=== PATIENT | female | born 1950 | race Caucasian/White ===

== ENCOUNTER 2018-02-04 14:00 | Emergency (ER) | payer MEDICARE ==
[~2018-02-04] VITALS: Ht 157.5 cm; Wt 40.0 kg
[2018-02-04 14:58] LABS: HEMATOCRIT 43.3 % (37.0-47.0); HEMOGLOBIN 13.3 g/dl (12.0-16.0); IMMATURE GRANULOCYTES 0.7 % (0.0-1.0); MEAN CORPUSCULAR HGB 29.5 pG CALC (26.0-32.0); MEAN CORPUSCULAR HGB CONC 30.7 g/L CALC (32.0-36.0); NEUT# 16.38 thou/uL (2.00-7.15); RED BLOOD COUNT 4.51 mill/uL (4.20-5.60); RED CELL DISTRI WIDTH 13.5 % (11.5-15.5)
[2018-02-04 15:09] LABS: ALBUMIN 4.1 g/dL (3.2-5.0); ALKALINE PHOSPHATASE 213 u/l (38-126); ANION GAP 16 (6-22 (CALC)); BILIRUBIN, TOTAL 0.4 mg/dL (0.0-1.4); BUN 28 mg/dL (8-23); BUN/CREATININE RATIO 27 (12-20 (CALC)); CARBON DIOXIDE 25 mmol/l (22-30); CHLORIDE 107 mmol/l (95-108); GFR 55 ML/MIN (>=60 (CALC)); GFR FOR AFR.AMER. > 60 ML/MIN (>=60 (CALC)); SGOT/AST 81 u/l (9-36); SGPT/ALT 53 u/l (11-66); SODIUM 143 mmol/l (137-146); TOTAL PROTEIN 7.5 g/dL (6.3-8.2)
[2018-02-04 15:12] LABS: POTASSIUM 5.2 mmol/l (3.5-5.1)
[2018-02-04] MEDS ORDERED: DILTIAZEM30 MG PO (15:20)
[2018-02-04] MEDS ORDERED: OMEPRAZOLE20 MG PO (15:20)
[2018-02-04] MEDS ORDERED: FOLIC ACID1 MG PO (15:22)
[2018-02-04] MEDS ORDERED: MIRALAX3350 NF PO (15:22)
[2018-02-04] MEDS ORDERED: NICODERM C14 MG/241 (15:23)
[2018-02-04] MEDS ORDERED: DOCUSATE CAL240 MG PO (15:24)
[2018-02-04] MEDS ORDERED: IRON325 M1 (15:24)
[2018-02-04] MEDS ORDERED: SYMBICORT1 AE1 IN (15:25)
[2018-02-04] MEDS ORDERED: SENNA-TABS8.6 MG PO (15:25)
[2018-02-04] MEDS ORDERED: IPRATROPIU0.5 MG/3 M IN (15:27)
[2018-02-04] MEDS ORDERED: LEVALBUTER0.63 MG/3 (15:28)
[2018-02-04] MEDS ORDERED: MELADOX3 MG PO (15:29)
[2018-02-04] MEDS ORDERED: ZOCOR5 MG PO (15:29)
[2018-02-04] MEDS ORDERED: GUAIFENESIN (15:29)
[2018-02-04] MEDS ORDERED: OLANZAPINE5 MG PO (15:30)
[2018-02-04 16:57] VITALS: BP 112/57
== END 2018-02-04 16:57 | disposition short-term general hospital (02) ==
LOC: ED 14:00
PROVIDERS: Emergency Medicine
PROC: 5A09357 Assistance with Respiratory Ventilation, Less than 24 Consecutive Hours, Continuous Positive Airway Pressure (ICD-10-PCS; principal; 2018-02-04)
DX: I21.4 Non-ST elevation (NSTEMI) myocardial infarction (principal); I50.9 Heart failure, unspecified; J96.92 Respiratory failure, unspecified with hypercapnia; J44.9 Chronic obstructive pulmonary disease, unspecified; Z93.3 Colostomy status; Z99.81 Dependence on supplemental oxygen; K57.90 Diverticulosis of intestine, part unspecified, without perforation or abscess without bleeding
CPT/HCPCS: J1650; J3475

== ENCOUNTER 2018-04-18 14:19 | Emergency (ER) | payer MEDICARE ==
[~2018-04-18] VITALS: Ht 157.5 cm; Wt 65.0 kg
[~2018-04-18 14:19] MED LIST: DILTIAZEM30 MG PO; DOCUSATE CAL240 MG PO; FOLIC ACID1 MG PO; GUAIFENESIN; IPRATROPIU0.5 MG/3 M IN; IRON325 M1; LEVALBUTER0.63 MG/3; MELADOX3 MG PO; MIRALAX3350 NF PO; NICODERM C14 MG/241; OLANZAPINE5 MG PO; OMEPRAZOLE20 MG PO; SENNA-TABS8.6 MG PO; SYMBICORT1 AE1 IN; ZOCOR5 MG PO
[2018-04-18 15:02] LABS: HEMATOCRIT 44.8 % (37.0-47.0); HEMOGLOBIN 13.9 g/dl (12.0-16.0); IMMATURE GRANULOCYTES 0.6 % (0.0-5.0); MEAN CELL VOLUME 97.4 fL CALC (80.0-100.0); MEAN CORPUSCULAR HGB 30.2 pG CALC (26.0-32.0); NEUT# 7.64 thou/uL (2.00-7.15); RED BLOOD COUNT 4.6 mill/uL (4.20-5.60); RED CELL DISTRI WIDTH 14.9 % (11.5-15.5)
[2018-04-18 15:07] LABS: ALBUMIN 3.9 g/dL (3.2-5.0); ALKALINE PHOSPHATASE 148 u/l (38-126); ANION GAP 13 (6-22 (CALC)); BILIRUBIN, TOTAL 0.2 mg/dL (0.0-1.4); BUN 23 mg/dL (8-23); BUN/CREATININE RATIO 42 (12-20 (CALC)); CARBON DIOXIDE 31 mmol/l (22-30); CHLORIDE 105 mmol/l (95-108); CREATININE 0.6 mg/dL (0.5-1.0); GFR > 60 ML/MIN (>=60 (CALC)); GFR FOR AFR.AMER. > 60 ML/MIN (>=60 (CALC)); POTASSIUM 4.5 mmol/l (3.5-5.1); SGOT/AST 32 u/l (9-36); SGPT/ALT 38 u/l (11-66); SODIUM 144 mmol/l (137-146); TOTAL PROTEIN 6.9 g/dL (6.3-8.2)
[2018-04-18 15:19] LABS: MYOGLOBIN 22 ng/mL (0 - 62)
[2018-04-18] MEDS ORDERED: ATORVASTATIN CA80 MG PO (15:24)
[2018-04-18] MEDS ORDERED: ASPIRIN81 MG PO (15:25)
[2018-04-18] MEDS ORDERED: ELIQUIS5 MG PO (15:27)
[2018-04-18] MEDS ORDERED: BUSPIRONE5 MG PO (15:42)
[2018-04-18] MEDS ORDERED: METO50TA52 PO (15:45)
[2018-04-18] MEDS ORDERED: PANTOPRAZOLE SO40 MG PO (15:49)
[2018-04-18] MEDS ORDERED: PAROXETINE10 MG PO (15:50)
[2018-04-18] MEDS ORDERED: OLANZAPINE5 MG PO (15:50)
[2018-04-18] MEDS ORDERED: XOPENEX HFA IN (15:52)
[2018-04-18] MEDS ORDERED: PERFOROMIS20 MCG/2 M PO (15:54)
[2018-04-18] MEDS ORDERED: LOSARTAN POTASS25 MG PO (15:55)
[2018-04-18] MEDS ORDERED: TRAMADOL HCL50 MG PO (15:56)
[2018-04-18 16:48] VITALS: BP 134/65
== END 2018-04-18 16:47 | disposition home or self-care (01) ==
LOC: ED 14:19
PROVIDERS: Emergency Medicine
DX: J44.1 Chronic obstructive pulmonary disease with (acute) exacerbation (principal); R06.02 Shortness of breath; R94.31 Abnormal electrocardiogram [ECG] [EKG]
CPT/HCPCS: J3475

== ENCOUNTER 2018-04-29 20:52 | Emergency (ER) | payer MEDICARE, OTHER ==
[~2018-04-29] VITALS: Ht 157.5 cm; Wt 44.5 kg
[~2018-04-29 20:52] MED LIST changes: +ASPIRIN81 MG PO; +ATORVASTATIN CA80 MG PO; +BUSPIRONE5 MG PO; +ELIQUIS5 MG PO; +LOSARTAN POTASS25 MG PO; +METO50TA52 PO; +PANTOPRAZOLE SO40 MG PO; +PAROXETINE10 MG PO; +PERFOROMIS20 MCG/2 M PO; +TRAMADOL HCL50 MG PO; +XOPENEX HFA IN
[2018-04-29 21:40] LABS: HEMATOCRIT 44.3 % (37.0-47.0); HEMOGLOBIN 13.8 g/dl (12.0-16.0); IMMATURE GRANULOCYTES 0.6 % (0.0-5.0); MEAN CELL VOLUME 96.5 fL CALC (80.0-100.0); MEAN CORPUSCULAR HGB 30.1 pG CALC (26.0-32.0); MEAN CORPUSCULAR HGB CONC 31.2 g/L CALC (32.0-36.0); NEUT# 12.77 thou/uL (2.00-7.15); RED BLOOD COUNT 4.59 mill/uL (4.20-5.60); RED CELL DISTRI WIDTH 14.2 % (11.5-15.5)
[2018-04-29 21:52] LABS: ALBUMIN 3.7 g/dL (3.2-5.0); ALKALINE PHOSPHATASE 144 u/l (38-126); ANION GAP 9 (6-22 (CALC)); BILIRUBIN, TOTAL 0.4 mg/dL (0.0-1.4); BUN 47 mg/dL (8-23); BUN/CREATININE RATIO 72 (12-20 (CALC)); CARBON DIOXIDE 38 mmol/l (22-30); CHLORIDE 99 mmol/l (95-108); CREATININE 0.6 mg/dL (0.5-1.0); GFR > 60 ML/MIN (>=60 (CALC)); GFR FOR AFR.AMER. > 60 ML/MIN (>=60 (CALC)); POTASSIUM 4.9 mmol/l (3.5-5.1); SGOT/AST 30 u/l (9-36); SODIUM 141 mmol/l (137-146); TOTAL PROTEIN 6.8 g/dL (6.3-8.2)
[2018-04-29 21:59] LABS: ACT PARTIAL THROMBO TIME 23.1 SECONDS (20.0-32.5); PROTHROMBIN TIME 10.2 SECONDS (9.0-12.5)
[2018-04-30] MEDS ORDERED: Levaquin PO (00:31)
[2018-04-30 02:55] VITALS: BP 113/71
== END 2018-04-30 02:55 | disposition home or self-care (01) ==
LOC: ED 20:52
PROVIDERS: Emergency Medicine
DX: J44.9 Chronic obstructive pulmonary disease, unspecified (principal); R06.02 Shortness of breath; R05 Cough; Z86.711 Personal history of pulmonary embolism; Z79.82 Long term (current) use of aspirin

== ENCOUNTER 2018-04-30 14:45 | Observation (INO) | payer MEDICARE, OTHER ==
[~2018-04-30] VITALS: Ht 157.5 cm; Wt 41.0 kg
[~2018-04-30 14:45] MED LIST changes: +Levaquin PO
--- NOTE | 2018-04-30 14:46 | NUR ---
PT TO ROOM 13 VIA EMS. O2 DEPENDENT 3L/M VIA NC.
--- NOTE | 2018-04-30 15:01 | NUR ---
PT STATES SHE HAD BEEN TRANSFERRED OVER TO [facility] FROM OUR ER LAST WEEK WAS THERE FOR 5 DAYS, DISCHARGED YESTERDAY AND WITHIN 30 MIN DIDNT THINK SHE WAS BREATHING RIGHT AND CAME TO OUR ER. WE DISCHARGED HER ON SHOP MANAGER LAST NIGHT, PT STATES WAS BEING SEEN BY A HOME HEALTH NURSE FOR FOLLOW UP AND STATES SHE FEELS THAT SHE NEEDS TO GO TO REHAB FOR HER BREATHING. PT IS ON 02 AT 3 L P/NC AT HOME. UPON ARRIVAL BY EMS PTS SATS ARE 98% ON 3 LITRES. PT IS ALERT/ORIENTED TO SELF/PLACE. EMS STATES THAT DAUGHTER STATED SHE WAS IN END STAGE COPD, BUT PT STATES SHE HAS NEVER HEARD THAT FROM DOCTORS.
--- NOTE | 2018-04-30 15:13 | NUR ---
PT INFORMED THAT SHE JUST DOESNT FEEL LIKE SHE CAN BREATHE RIGHT OR CATCH HER BREATH.
--- NOTE | 2018-04-30 15:28 | NUR ---
DR. COSTA IS SPEAKING TO CASE MANAGEMENT ABOUT POSSIBLE PLACEMENT.
--- NOTE | 2018-04-30 15:42 | NUR ---
PT IS TO BE ADMITTED TODAY AND CASE MANAGEMENT WILL SPEAK WITH PT TOMORROW. PT AND FAMILY VOICES UNDERSTANDING. PT RESTING QUIETLY ON STRETCHER, CALL LIGHT WITHIN REACH, SIDE RAILS UP, SISTER AT BEDSIDE.
--- NOTE | 2018-04-30 15:52 | NUR ---
SPOKE TO PT ABOUT SWELLING AND BRUISING TO LEFT AC AREA, PT AND FAMILY STATES IT WAS FROM LAST NIGHT WHERE SHE HAD CONTRAST FOR CT, AND SHE HAD ACCIDENTALLY PULLED IT OUT. THE DRESSING ON RIGHT FOREARM, IS BRUISING AND SWELLING FROM LAST NIGHT WHERE THEY TRIED TO START AN IV. DENIES ANY PAIN TO EITHER AREA.
--- NOTE | 2018-04-30 16:13 | NUR ---
called med surg the nurse is busy but will return my call as soon as possible
--- NOTE | 2018-04-30 16:30 | NUR ---
REPORT GIVEN TO NURSE ON MED SURG FOR CONTINUATION OF CARE
--- NOTE | 2018-04-30 16:53 | NUR ---
REPORT RECEIVED FROM GIACOMO IN ED, PT ARRIVED ON UNIT @ 1645 VIA STRETCHER AND TRANSFERRED TO BED, ALERT AND ORIENTED X 4, DENIES ANY PAIN BUT SOB, O2 @ 3L IN PLACE, SETTLED IN BED, CALL EPPERSON IN REACH.
--- NOTE | 2018-04-30 16:55 | NUR ---
PT TAKEN TO FLOOR FOR CONTINUATION OF CARE
[2018-04-30 17:07] VITALS: BP 112/44
[2018-04-30 19:15] VITALS: BP 145/83
--- NOTE | 2018-04-30 19:22 | NUR ---
BEDSIDE REPORT RECEIVED FROM DAY NURSE. PT IS IN LOW FOWLERS POSITION W/LIGHTS ON WATCHING TV. IV FLUIDS RUNNING/SITE PATENT AND APPEARS HEALTHY. EDEMA TO LEFT ARM PREVIOUSLY NOTED UPON ADMISSION. PT DENIES ANY DISTRESS AT THIS TIME. WILL FOLLOW-UP WITH ASSESSMENT AND MEDICATIONS ORDERED AND CONTINUE TO MONITOR. CALL LIGHT IN HAND AND PT ENCOURAGED TO CALL FOR ASSISTANCE IF NEEDED.
--- NOTE | 2018-04-30 22:07 | NUR ---
PT WAS SLEEPING WHEN I ENTERED THE ROOM, DIFFICULT TO WAKE, VERY GROGGY AND SOFT SPOKEN. SHE WAS ABLE TO ANSWER MY QUESTIONS AND ABLE TO HOLD HER CUP AND TAKE MEDICATIONS, BUT SHE IMMEDIATELY CLOSES HER EYES AND IS QUIET. PT DENIES PAIN/SOB OR ANY DISTRESSES AT THIS TIME. WILL CONTNUE TO MONITOR. RESPIRATORY IS IN WITH PT NOW.
--- NOTE | 2018-05-01 02:12 | NUR ---
PT IS SLEEPING AT THIS TIME. LIGHTS ARE OFF, TV ON LOW. NO S/S OF DISTRESS. CALL LIGHT W/IN REACH
[2018-05-01 04:00] VITALS: BP 110/65
--- NOTE | 2018-05-01 04:15 | NUR ---
V/S ASSESSED AND PT UP TO BEDSIDE COMMODE AND BACK TO BED. PT DID NOT WANT TO MOVE OR WAKE UP, BUT W/SOME ENCOURAGEMENT SHE AMBULATED TO BSC AND BACK TO BED. PT DENIES ANY PAIN, SLIGHT SOB W/AMBULATION. CALL LIGHT AT SIDE
--- NOTE | 2018-05-01 07:00 | NUR ---
SHIFT CHANGE REPORT FROM FAZ[facility], PT AWAKE ALERT AND ORIENTED RESTING IN BED, REPORTED SHE SLEPT WELL DURING THE NIGHT, O2 @ 3L VIA NC IN PLACE, BREATHING SHALLOW, COARSE RATTLILNG NON-PRODUCTIVE COUGH, DENIED PAIN, CALL EPPERSON IN REACH.
[2018-05-01 08:30] VITALS: BP 103/60
--- NOTE | 2018-05-01 12:16 | NUR ---
ASSISTED TO BSC AND TO RECLINER ORDERED BY MD, EXTRA LARGE MEPIPLEX DRESSING REMOVED FROM COCCYX AREA, NO REDNESS/ULCERS FOUND, PT REPORTED HOME YOLANDA NURSE PLACED DRESSING THERE TO KEEP TISSUE INTACT. WILL CONTINUE TO MONITOR.
[2018-05-01 15:44] VITALS: BP 95/54
--- NOTE | 2018-05-01 17:00 | NUR ---
ASSISTED TO BSC THEN BACK TO BED, C/O BEING UNABLE TO BREATHE AND REQUEST TO INCREASE O2, RESPIRATORY THERAPIST NOTIFIED AND GAVE TREATMENT, PT FELT BETTER, WILL CONRINUE TO MONITOR.
[2018-05-01 19:22] VITALS: BP 94/57
--- NOTE | 2018-05-01 20:00 | NUR ---
PATIENT RESTING IN BED WITH O2 VIA NASAL CANNULA IN PLACE AT 3LPM. PATIENT IS AWAKE ALERT AND ORIENTEDX3 WITH TREMORS NOTED TO BOTH UE. PATIENT ON CONTACT PRECAUTIONS FOR H/O MRSA. SALINE LOCK TO LEFT WRIST INTACT AND APPEARS HEALTHY AT THIS TIME. COLOSTOMY TO LEFT ABD INTACT WITH NO DRAINAGE AT THIS TIME. ABD IS SOFT WITH BS+. TEDS IN PLACE. LUNGS WITH RHONCHI THROUGHOUT AND SHALLOW. NON-PRODUCTIVE COUGH NOTED. SAFETY PRECAUTIONS REINFORCED. CALL LIGHT IN REACH, WILL CONT TO MONITOR.
--- NOTE | 2018-05-02 | NUR ---
PATIENT APPEARS SLEEPING AT THIS TIME WITH O2 VIA NASAL CANNULA IN PLACE. CALL LIGHT IN REACH. WILL CONT TO MONITOR.
--- NOTE | 2018-05-02 04:00 | NUR ---
APPEARS SLEEPING WITH O2 VIA NASAL CANNULA IN PLACE. CALL LIGHT IN REACH. WILL CONT TO MONITOR.
[2018-05-02 04:15] VITALS: BP 106/86
[2018-05-02 05:30] LABS: IMMATURE GRANULOCYTES 0.7 % (0.0-5.0); MEAN CELL VOLUME 97.3 fL CALC (80.0-100.0); MEAN CORPUSCULAR HGB 30.5 pG CALC (26.0-32.0); MEAN CORPUSCULAR HGB CONC 31.4 g/L CALC (32.0-36.0); NEUT# 8.05 thou/uL (2.00-7.15); RED BLOOD COUNT 3.7 mill/uL (4.20-5.60); RED CELL DISTRI WIDTH 14.6 % (11.5-15.5)
[2018-05-02 05:33] LABS: HEMOGLOBIN 11.3 g/dl (12.0-16.0)
[2018-05-02 05:47] LABS: ANION GAP 7 (6-22 (CALC)); BUN 42 mg/dL (8-23); BUN/CREATININE RATIO 74 (12-20 (CALC)); CARBON DIOXIDE 35 mmol/l (22-30); CHLORIDE 104 mmol/l (95-108); CREATININE 0.6 mg/dL (0.5-1.0); GFR > 60 ML/MIN (>=60 (CALC)); GFR FOR AFR.AMER. > 60 ML/MIN (>=60 (CALC)); MAGNESIUM 2.3 mg/dL (1.6-2.3); POTASSIUM 4.3 mmol/l (3.5-5.1); SODIUM 142 mmol/l (137-146)
--- NOTE | 2018-05-02 07:23 | NUR ---
PT LAYING IN BED AWAKE, STATED SHE DOES NOT WANT TO GET UP; RESP EVEN AND UNLABORED, WILL CONTINUE TO MONITOR.
--- NOTE | 2018-05-02 07:30 | NUR ---
PT AWAKE ALERT X3; 02@3L NC; RESP SHALLOW; LUNGS RHONCHI THROUGHOUT; NON PRODUCTIVE COUGH; BRUISE ON JHON; #18 LW, SL; BS ACTIVE, ABD SOFT NON TENDER; COLOSTOMY TO L ABD, INTACT, NO BM OR AIR IN BAG, SITE APPEARS HEALTHY; CONTANT PRECAUTION FOR HX OF MARSA; BONNIE STOCKING IN PLACE; PT VOICED NO COMPLAINS; SAFETY PRECAUTION REINFORCED. BED IN LOW LOCKED POSITION; CALL EPPERSON IN REACH; WILL CONTINUE TO MONITOR.
[2018-05-02 07:34] VITALS: BP 107/46
[2018-05-02 08:40] VITALS: BP 126/50
[2018-05-02 11:05] VITALS: BP 116/60
--- NOTE | 2018-05-02 11:37 | NUR ---
PT LAYING IN BED TALKING ON HER CELL PHONE; NO DISTRESS NOTED; WILL CONTINUE TO MONITOR.
[2018-05-02 15:05] VITALS: BP 128/68
--- NOTE | 2018-05-02 15:30 | NUR ---
PT LAYING IN BED IN AN UPRIGHT POSITION WATCHING TV; NO S/S OF DISTRESS NOTED; PT VOICED NO CONCERNS; CALL LIGHT IN REACH, BED IN LOW LOCKED POSITION; WILL CONTINUE TO MONITOR.
[2018-05-02 19:33] VITALS: BP 110/60
[2018-05-03 04:00] VITALS: BP 128/43
[2018-05-03 05:32] LABS: HEMATOCRIT 35.9 % (37.0-47.0); HEMOGLOBIN 11.2 g/dl (12.0-16.0); MEAN CELL VOLUME 98.1 fL CALC (80.0-100.0); MEAN CORPUSCULAR HGB 30.6 pG CALC (26.0-32.0); MEAN CORPUSCULAR HGB CONC 31.2 g/L CALC (32.0-36.0); RED BLOOD COUNT 3.66 mill/uL (4.20-5.60); RED CELL DISTRI WIDTH 14.3 % (11.5-15.5)
[2018-05-03 06:12] LABS: ANION GAP 5 (6-22 (CALC)); BUN 39 mg/dL (8-23); BUN/CREATININE RATIO 83 (12-20 (CALC)); CARBON DIOXIDE 36 mmol/l (22-30); CHLORIDE 104 mmol/l (95-108); CREATININE 0.5 mg/dL (0.5-1.0); GFR > 60 ML/MIN (>=60 (CALC)); GFR FOR AFR.AMER. > 60 ML/MIN (>=60 (CALC)); MAGNESIUM 2.3 mg/dL (1.6-2.3); POTASSIUM 4.4 mmol/l (3.5-5.1); SODIUM 142 mmol/l (137-146)
--- NOTE | 2018-05-03 07:06 | NUR ---
REPORT RECEIVED BY SANDHYA. PT IS SLEEPING IN BED WITH NO S/S OF DISTRESS NOTED. CALL LIGHT IN REACH.
[2018-05-03 08:00] VITALS: BP 116/69
--- NOTE | 2018-05-03 08:15 | NUR ---
ASSESSMENT DONE. PT IS A&O X3 BUT IS DROWSY AND SHAKY. PT DENIES PAIN AT THIS TIME. RESPS ARE SHALLOW/RHONCHI. O2 AT 3L/MIN VIA NC. PT DENIES NEEDS AT THIS TIME. #22 LH THAT APPEARS HEALTHY. SAFETY PRECAUTIONS REINFORCED AND CALL LIGHT IN REACH.
--- NOTE | 2018-05-03 11:38 | NUR ---
PT IS RESTING IN BED WITH NO S/S OF DISTRESS NOTED. PT DENIES NEEDS AT THIS TIME. 02 3L/MIN VIA NC IN PLACE. CALL LIGHT IN REACH.
--- NOTE | 2018-05-03 14:14 | NUR ---
PT STATED SHE FEELS SOB. O2 3L/MIN VIA NC. OBTAIN 02 IS 99% P-80. PT IS TAKING DEEP BREATHS. A MODERATE FORMED BM IN COLOSTOMY. COLOSTOMY BAG CHANGE. PT DENIES ANY OTHER NEEDS. NOTIFIED GAEL MARTINEZ.
[2018-05-03 15:36] VITALS: BP 119/76
--- NOTE | 2018-05-03 16:19 | NUR ---
PT IS RESTING IN BED WITH NO S/S OF DISTRESS NOTED. PT DENIES NEEDS AT THIS TIME. CALL LIGHT IN REACH.
[2018-05-03] MEDS ORDERED: TRAMADOL HYDROC50 MG PO (16:26)
--- NOTE | 2018-05-03 17:16 | NUR ---
MEDICATED PT WITH [facility] FOR ANXIOUS DUE TO PT IS BEING TRANFER TODAY TO [facility]. PT DENIES ANY OTHER NEEDS AT THIS TIME.CALL LIGHT IN REACH.
--- NOTE | 2018-05-03 20:10 | NUR ---
patient discharged to [facility]. repot given to Hannah. transported per [facility] transport @ 1999. discharge instructions, perscriptions, and all patient belongings sent with patient.
== END 2018-05-03 20:00 ==
LOC: ED 14:45 → ED-I 15:22 → ED 15:57 → MS2 15:58
PROVIDERS: Nurse Practitioner Family; ADMIT Internal Medicine; ATTEND Internal Medicine
DX: J44.1 Chronic obstructive pulmonary disease with (acute) exacerbation (principal); J96.10 Chronic respiratory failure, unspecified whether with hypoxia or hypercapnia; Z68.1 Body mass index [BMI] 19.9 or less, adult; I11.0 Hypertensive heart disease with heart failure; I50.9 Heart failure, unspecified; I25.5 Ischemic cardiomyopathy; E78.5 Hyperlipidemia, unspecified; R63.6 Underweight; I25.10 Atherosclerotic heart disease of native coronary artery without angina pectoris; F41.8 Other specified anxiety disorders; R53.81 Other malaise; I25.2 Old myocardial infarction; Z79.01 Long term (current) use of anticoagulants; Z93.3 Colostomy status; Z87.01 Personal history of pneumonia (recurrent); Z99.81 Dependence on supplemental oxygen; Z86.711 Personal history of pulmonary embolism